=== PATIENT | female | born 1970 | race Caucasian/White ===

== ENCOUNTER 2021-04-22 17:52 | Outpatient (CLI) | payer BC | END 2021-04-22 17:53 | disposition home or self-care (01) | LOC: SCSRAD 17:52 | PROVIDERS: ATTEND Nurse Practitioner Family | DX: M25.531 Pain in right wrist (principal); M19.041 Primary osteoarthritis, right hand ==

== ENCOUNTER 2022-01-11 12:53 | Emergency (ER) | payer BC | END 2022-01-11 14:41 | disposition home or self-care (01) | LOC: ERS 12:53 | DX: M79.604 Pain in right leg (principal); I10 Essential (primary) hypertension; Z79.899 Other long term (current) drug therapy ==